=== PATIENT | male | born 1940 | race Caucasian/White ===

== ENCOUNTER 2019-04-09 08:43 | Inpatient (IN) | payer MEDICARE, BC ==
[2019-03-30 10:07] LABS: BASOPHILS % (AUTO) 0.3 % (0-1); EOSINOPHILS # (AUTO) 0.3 X10'3 (0-0.9); LYMPHOCYTES # (AUTO) 1.9 X10'3 (1.1-4.8); LYMPHOCYTES % (AUTO) 29.5 % (21-51); MEAN CORPUSCULAR HEMOGLOBIN 28.9 PG (27.0-31.0); MEAN CORPUSCULAR HGB CONC 33.4 g/dL (33.0-36.5); MEAN CORPUSCULAR VOLUME 86.4 FL (78-98); MEAN PLATELET VOLUME 6.2 FL (7.4-10.4); MONOCYTES # (AUTO) 0.5 X10'3 (0-0.9); MONOCYTES % (AUTO) 7.8 % (2-12); NEUTROPHILS # (AUTO) 3.7 X10'3 (1.8-7.7); NEUTROPHILS % (AUTO) 58.4 % (42-75); PRE OP PLATELET COUNT 211 X10'3 (140-440); RED BLOOD COUNT 4.51 X10'6 (4.70-6.10); RED CELL DISTRIBUTION WIDTH 14.5 % (11.5-14.5)
[2019-03-30 10:30] LABS: ALBUMIN 3.5 G/DL (3.4-5.0); ALBUMIN/GLOBULIN RATIO 1.1 (1.1-1.5); ALKALINE PHOSPHATASE 62 IU/L (46-116); BLOOD UREA NITROGEN 17 MG/DL (7-18); BUN/CREATININE RATIO 17.5 (5.4-32.0); CALCIUM 8.6 MG/DL (8.5-10.1); CHLORIDE 107 MMOL/L (99-107); CREATININE 0.97 MG/DL (0.60-1.10); PRE OP ALT 21 U/L (30-65); PRE OP ANION GAP 5 (8-16); PRE OP AST 15 U/L (10-37); PRE OP BILIRUB, TOTAL 0.5 MG/DL (0.0-1.0); PRE OP GLUCOSE 110 MG/DL (70-104); PRE OP POTASSIUM 4.3 MMOL/L (3.4-5.1); PRE OP SODIUM 140 MMOL/L (135-145); TOTAL CARBON DIOXIDE 28.2 MMOL/L (24-32); TOTAL PROTEIN 6.6 G/DL (6.4-8.2); eGFR 75 ML/MIN
[2019-04-09] VITALS (16 sets, daily range): BP systolic 115–133; BP diastolic 54–73
[~2019-04-09] VITALS: Ht 185.4 cm; Wt 100.0 kg
[~2019-04-09 08:43] MED LIST: ACET-222 PO; ASPI-1265 PO; ATOR10TA70 PO; CHOL10002 PO; DOCU100C40 PO; LISI10TA4 PO; TERA5CAP4 PO; VANCOMYCIN INJ 1000 MG in NORMAL SALINE 250ml IV.SOLN IV ONE; cefazolin/dext.iso 2gm/100 ML IV ONE; famotidine 20mg tablet PO ONE; ringers solution, lacted 1,000 ML IV SCH; tranexamic acid inj. 1,000 MG in normal saline 100 ML IV ONE
[2019-04-09] MEDS ORDERED: IRON PO (09:26)
[2019-04-09] MEDS ORDERED: MULT-933 PO (09:26)
[2019-04-09] MEDS ORDERED: ROPIVAcaine 0.5% (5mg/ml) 30ml vial ONE ×2 (10:21→10:24)
[2019-04-09] MEDS ORDERED: fentaNYL/PF 50MCG/1 ML 2ML syringe ONE ×2 (10:23→12:53)
[2019-04-09] MEDS ORDERED: midazolam 2 mg/2 ml injection ONE (10:23)
[2019-04-09] MEDS ORDERED: propofol inj 20 ML IV ONE (10:24)
[2019-04-09] MEDS ORDERED: LIDOcaine 2% (20mg/ml) 5ml vial ONE (10:24)
[2019-04-09] MEDS ORDERED: ketorolac trometh. 30mg/ml inj. ONE (10:24)
[2019-04-09] MEDS ORDERED: dexamethasone sod phosphate 10mg/ml inj ONE (11:04)
[2019-04-09] MEDS ORDERED: sevoflurane 250ml liquid IH ONE (11:04)
[2019-04-09] MEDS ORDERED: potassium cl 20mEq in 1/2 NS 1,000 ML IV SCH (11:57)
[2019-04-09] MEDS ORDERED: ondansetron/PF 4mg/2ml inj IV PRN ×2 (12:00→12:35)
[2019-04-09] MEDS ORDERED: bisacodyl 10mg suppository rectal RC PRN (12:00)
[2019-04-09] MEDS ORDERED: magnesium hydroxide 30ml (MOM) UD suspension PO PRN (12:00)
[2019-04-09] MEDS ORDERED: diphenhydrAMINE 25mg capsule PO PRN ×2 (12:00)
[2019-04-09] MEDS ORDERED: acetaminophen 325mg tablet PO PRN (12:00)
[2019-04-09] MEDS ORDERED: HYDROmorphone 1 mg/ml syringe IV PRN (12:00)
[2019-04-09] MEDS ORDERED: oxyCODONE IR 5mg (immed. release) tablet PO PRN ×2 (12:00)
[2019-04-09] MEDS ORDERED: HYDROmorphone inj. 0.5 MG/0.5 ML DISP.SYRIN IV PRN (12:00)
[2019-04-09] MEDS ORDERED: ondansetron/PF 4mg/2ml inj ONE (12:05)
[2019-04-09] MEDS ORDERED: ROPIVAcaine 0.2%/PF PAIN PUMP 400 ML IJ SCH (12:34)
[2019-04-09] MEDS ORDERED: ringers solution, lacted 1,000 ML IV SCH (12:34)
[2019-04-09] MEDS ORDERED: hydrALAZINE 20mg/ml inj. IV PRN (12:35)
[2019-04-09] MEDS ORDERED: morphine 4 MG/ML inj SYRINge IV PRN ×2 (12:35)
[2019-04-09] MEDS ORDERED: enalaprilat dihydrate 2.5mg/2ml vial IV PRN (12:35)
[2019-04-09] MEDS ORDERED: fentaNYL/PF 50MCG/1 ML 2ML syringe IV PRN ×2 (12:35)
--- NOTE | 2019-04-09 13:32 | NUR ---
Received from OR via ORTHO BED WITH [facility] , accompanied by Anesthesiologist [place] and report given by Anesthesiolgist. PATIENT WITH 18G PIV IN RIGHT UE RUNNING LR AT 100. SLING TO LEFT SHOULDER IS CDI. + RAIDAL PULSE PRESENT. PATIENT WITH ANTERIOR SHOUDLER DRESSING IS CDI. 10L MASK ON WITH 100% SATURATIONS. VSS Addendum: 04/09/19 at 1344 by Carlos Ash RN, RN Amended: Links added.
[2019-04-09] MEDS: acetaminophen 325mg tablet PO SCH ×2 (14:00→21:28)
--- NOTE | 2019-04-09 14:25 | NUR ---
Patient in room ORTHO 4013. I have received report from WILLIAM Villalta and had the opportunity to ask questions and assume patient care. Started post-op vitals. Pt had no C/O pain.
--- NOTE | 2019-04-09 14:42 | NUR ---
ALL CRITERIA FOR TRANSFER TO THE FLOOR HAS BEEN ACHIEVED. VSS. BED LOW, CALL LIGHT AND VS. SET IN PLACE. RN NOTIFIED PATIENT HAS ARRIVED. PATIENT RESTING COMFORTABLY IN BED. BELONGINGS SENT WITH PATIENT. DRESSINGS CDI. AT BEDSIDE. ONE BAG OF LABELED BELONGINGS IN CLOSET OF 2419B. REPORT GIVEN TO KAYLYN THOMAS. Addendum: 04/09/19 at 1448 by Carlos Ash RN, RN Amended: Links added.
[2019-04-09] MEDS ORDERED: tranexamic acid inj. 1,000 MG in normal saline 100ml IV soln 100 ML IV ONE (15:00)
[2019-04-09] MEDS: ceFAZolin 1GM/D5W- ADD-VANTAGE 50 ML IV SCH (15:55)
--- NOTE | 2019-04-09 18:17 | NUR ---
Problems reprioritized. Patient report given, questions answered & plan of care reviewed with WILLIAM Gallegos.
--- NOTE | 2019-04-09 19:00 | NUR ---
Patient in room ORTHO 4013. I have received report from Julián and Reshma RNs and had the opportunity to ask questions and assume patient care.
[2019-04-09] MEDS ORDERED: vancomycin/NS 1 GM ADD-VANTAGE 250 ML IV SCH (20:00)
[2019-04-09] MEDS ORDERED: sennosides 8.6mg tablet PO SCH (21:00)
[2019-04-09] MEDS ORDERED: vitamin D (cholecalciferol) 1,000 unit tablet PO SCH (21:00)
[2019-04-09] MEDS ORDERED: lisinopril 10 MG tablet PO SCH (21:00)
[2019-04-09] MEDS ORDERED: docusate sod 100mg capsule PO SCH (21:00)
[2019-04-09] MEDS ORDERED: atorvastatin 10mg tablet PO SCH (21:00)
[2019-04-09] MEDS ORDERED: terazosin 5mg capsule PO SCH (21:00)
[2019-04-10] MEDS: ceFAZolin 1GM/D5W- ADD-VANTAGE 50 ML IV SCH (00:16)
--- NOTE | 2019-04-10 01:16 | NUR ---
Pt resting in bed quietly, denies pain, sensation returning to palm of hand, and fingertips tingling.
[2019-04-10 02:00] VITALS: BP 118/56
[2019-04-10 06:00] VITALS: BP 136/62
--- NOTE | 2019-04-10 06:15 | NUR ---
Patient in room ORTHO 4013. I have received report from El THOMAS and had the opportunity to ask questions and assume patient care.
[2019-04-10 06:18] LABS: BASOPHILS % (AUTO) 0.1 % (0-1); EOSINOPHILS % (AUTO) 0.4 % (0-6); HEMATOCRIT 30.6 % (42.0-52.0); HEMOGLOBIN 10.2 g/dl (14.0-17.9); LYMPHOCYTES # (AUTO) 1.6 X10'3 (1.1-4.8); LYMPHOCYTES % (AUTO) 14.4 % (21-51); MEAN CORPUSCULAR HEMOGLOBIN 29.1 PG (27.0-31.0); MEAN CORPUSCULAR HGB CONC 33.4 g/dL (33.0-36.5); MEAN CORPUSCULAR VOLUME 87.1 FL (78-98); MEAN PLATELET VOLUME 6.6 FL (7.4-10.4); MONOCYTES # (AUTO) 0.9 X10'3 (0-0.9); MONOCYTES % (AUTO) 7.8 % (2-12); NEUTROPHILS # (AUTO) 8.6 X10'3 (1.8-7.7); NEUTROPHILS % (AUTO) 77.3 % (42-75); PLATELET COUNT 164 X10'3 (140-440); RED BLOOD COUNT 3.52 X10'6 (4.70-6.10); RED CELL DISTRIBUTION WIDTH 14.7 % (11.5-14.5); WHITE BLOOD COUNT 11.1 X10'3 (4.5-11.0)
[2019-04-10 07:42] LABS: ANION GAP 6 (8-16); CHLORIDE 109 MMOL/L (99-107); POTASSIUM 4.5 MMOL/L (3.5-5.1); SODIUM 140 MMOL/L (135-145); TOTAL CARBON DIOXIDE 25.3 MMOL/L (24-32)
[2019-04-10] MEDS ORDERED: aspirin 325mg tablet PO SCH (08:30)
[2019-04-10] MEDS: acetaminophen 325mg tablet PO SCH (09:29)
[2019-04-10 10:00] VITALS: BP 123/55
[2019-04-10] MEDS ORDERED: celeCOXIB 100mg capsule PO SCH (20:00)
[2019-04-11] MEDS ORDERED: acetaminophen 325mg tablet PO PRN (12:00)
== END 2019-04-10 13:03 | disposition home or self-care (01) | DRG 483 ==
LOC: PAS 08:43 → EDSTATUS 11:45 → ORTHO 4S 15:47
PROVIDERS: ADMIT Orthopaedic Surgery; ATTEND Orthopaedic Surgery
PROC: 3E0T3BZ Introduction of Anesthetic Agent into Peripheral Nerves and Plexi, Percutaneous Approach (ICD-10-PCS; 2019-04-09)
PROC: 0RRK0JZ Replacement of Left Shoulder Joint with Synthetic Substitute, Open Approach (ICD-10-PCS; principal; 2019-04-09 11:04)
DX: M19.012 Primary osteoarthritis, left shoulder (principal); D62 Acute posthemorrhagic anemia; M25.512 Pain in left shoulder; E78.5 Hyperlipidemia, unspecified; I10 Essential (primary) hypertension; N40.0 Benign prostatic hyperplasia without lower urinary tract symptoms; I25.10 Atherosclerotic heart disease of native coronary artery without angina pectoris; Z79.899 Other long term (current) drug therapy; Z79.82 Long term (current) use of aspirin
CPT/HCPCS: 36415; 80051; 80053; 82948; 85025; 87081; 97161; 97530; A4565; A4618; A7000; C1713; C1776; G0378; J0690; J1100; J1885; J2001; J2250; J2405; J2704; J2795; J3010; J3370; J3480; J7120

== ENCOUNTER 2023-07-10 07:22 | Inpatient (IN) | payer MEDICARE, BC ==
[2023-07-04 10:45] LABS: BILIRUBIN,URINE NEGATIVE (Neg); CLARITY,URINE CLEAR (Clear); COLOR,URINE YELLOW (Yellow); GLUCOSE, URINE NEGATIVE (Neg); KETONES,URINE NEGATIVE (Neg); LEUKOCYTE ESTERASE ,URINE NEGATIVE (Neg); NITRITES, URINE NEGATIVE (Neg); OCCULT BLOOD,URINE TRACE-INTACT (Neg); PH,URINE 6.5 (4.8-8.0); PROTEIN,URINE NEGATIVE (Neg); UROBILINOGEN,URINE 0.2 E.U/dL (0.2-1.0)
[2023-07-04 10:46] LABS: BASOPHILS % (AUTO) 0.3 % (0-1); EOSINOPHILS # (AUTO) 0.3 X10'3 (0-0.9); EOSINOPHILS % (AUTO) 5.1 % (0-6); LYMPHOCYTES # (AUTO) 1.8 X10'3 (1.1-4.8); LYMPHOCYTES % (AUTO) 27.7 % (21-51); MEAN CORPUSCULAR HEMOGLOBIN 29.6 PG (27.0-31.0); MEAN CORPUSCULAR VOLUME 86.9 FL (78-98); MONOCYTES # (AUTO) 0.6 X10'3 (0-0.9); NEUTROPHILS # (AUTO) 3.7 X10'3 (1.8-7.7); NEUTROPHILS % (AUTO) 57.9 % (42-75); PRE OP HEMATOCRIT 38.8 % (42.0-52.0); PRE OP HEMOGLOBIN 13.2 g/dL (14.0-17.9); PRE OP PLATELET COUNT 201 X10'3 (140-440); PRE OP WHITE BLOOD COUNT 6.4 10'3 (4.8-10.8); RED BLOOD COUNT 4.47 X10'6 (4.70-6.10); RED CELL DISTRIBUTION WIDTH 14.2 % (11.5-14.5)
[2023-07-04 10:55] LABS: UA COLLECTION TYPE CLN CATCH MIDSTREAM
[2023-07-04 10:56] LABS: BACTERIA,URINE NONE SEEN /HPF (Neg); MUCUS STRANDS NONE SEEN /LPF (Neg); RBC,URINE 0-2 /HPF (0-2); SQUAMOUS EPITHELIAL CELL,UR FEW /LPF (FEW); WBC,URINE NONE SEEN /HPF (0-4)
[2023-07-04 11:01] LABS: PRE OP PROTIME 10.6 SECONDS (9.0-12.0)
[2023-07-04 11:05] LABS: ALBUMIN 3.6 G/DL (3.4-5.0); ALBUMIN/GLOBULIN RATIO 1.2 (1.1-1.5); ALKALINE PHOSPHATASE 78 IU/L (46-116); BLOOD UREA NITROGEN 12 MG/DL (7-18); BUN/CREATININE RATIO 13.6 (10.0-20.0); CALCIUM 9.3 MG/DL (8.5-10.1); CHLORIDE 106 MMOL/L (99-107); CREATININE 0.88 MG/DL (0.60-1.10); PRE OP ALT 28 U/L (30-65); PRE OP ANION GAP 8 (8-16); PRE OP AST 24 U/L (10-37); PRE OP BILIRUB, TOTAL 0.7 MG/DL (0.0-1.0); PRE OP GLUCOSE 117 MG/DL (70-104); PRE OP POTASSIUM 4.1 MMOL/L (3.4-5.1); PRE OP SODIUM 141 MMOL/L (135-145); TOTAL CARBON DIOXIDE 27.5 MMOL/L (24-32); TOTAL PROTEIN 6.7 G/DL (6.4-8.2); eGFR 83 ML/MIN
[~2023-07-10] VITALS: Ht 185.4 cm; Wt 103.5 kg
[2023-07-10] VITALS (25 sets, daily range): BP systolic 110–133; BP diastolic 56–76; PULSE 52–94; RESP 12–21; TEMP 97.7–98; O2SAT 93–100
[~2023-07-10 07:22] MED LIST changes: -ACET-222 PO; -CHOL10002 PO; +CHOL200013 PO; +IRON PO; +LISI10TA27 PO; -LISI10TA4 PO; +MELO-102 PO; +MULT-933 PO; -VANCOMYCIN INJ 1000 MG in NORMAL SALINE 250ml IV.SOLN IV ONE; +VIT E PO; +cefazolin 2gm/D5W 100mL 100 ML IV ONE; -cefazolin/dext.iso 2gm/100 ML IV ONE; -tranexamic acid inj. 1,000 MG in normal saline 100 ML IV ONE; +tranexamic acid inj. 1,000 MG in normal saline IV soln 100ML IV ONE
[2023-07-10] MEDS ORDERED: cloNIDine hcl/PF 100mcg/ml inj ONE (09:26)
[2023-07-10] MEDS ORDERED: ondansetron/PF 4mg/2ml inj IV PRN ×2 (09:30→09:40)
[2023-07-10] MEDS ORDERED: midazolam 1 mg/ML 2ml injection ONE (09:30)
[2023-07-10] MEDS ORDERED: acetaminophen 325mg tablet PO PRN (09:30)
[2023-07-10] MEDS ORDERED: HYDROcodone/acetaminophen 10/325mg tab PO PRN ×2 (09:30)
[2023-07-10] MEDS ORDERED: diphenhydrAMINE 25mg capsule PO PRN (09:30)
[2023-07-10] MEDS ORDERED: magnesium hydroxide 30ml (MOM) UD suspension PO PRN (09:30)
[2023-07-10] MEDS ORDERED: bisacodyl 10mg suppository rectal RC PRN (09:30)
[2023-07-10] MEDS ORDERED: naloxone 0.4 mg/ml inj IV PRN (09:30)
[2023-07-10] MEDS ORDERED: fentaNYL /PF 50mcg/ml 5ml ampule ONE (09:31)
[2023-07-10] MEDS ORDERED: sevoflurane 250ml liquid IH ONE (09:38)
[2023-07-10] MEDS ORDERED: ringers solution, lacted 1,000 ML IV SCH (09:40)
[2023-07-10] MEDS ORDERED: acetaminophen 1,000mg/100ml IV 100 ML IV PRN (09:40)
[2023-07-10] MEDS ORDERED: morphine 4 MG/ML inj SYRINge IV PRN (09:40)
[2023-07-10] MEDS ORDERED: labetalol 20mg/4ml (5mg/ml) syringe IV PRN (09:40)
[2023-07-10] MEDS ORDERED: hydrALAZINE 20mg/ml inj. IV PRN (09:40)
[2023-07-10] MEDS ORDERED: meperidine/PF 25mg/ml syringe IV PRN ×3 (09:40)
[2023-07-10] MEDS ORDERED: morphine 2 MG/ML inj. syringe IV PRN (09:40)
[2023-07-10] MEDS ORDERED: proCHLORperazine 10 MG/2 ml inj IV PRN (09:40)
[2023-07-10] MEDS ORDERED: vancomycin 1,000mg inj ONE (10:11)
[2023-07-10] MEDS ORDERED: ePHEDrine 50MG/ML INJ. ONE (10:32)
[2023-07-10] MEDS ORDERED: propofol inj 20 ML IV ONE (10:32)
[2023-07-10] MEDS ORDERED: rocuronium 10mg/ml inj IV ONE (10:32)
[2023-07-10] MEDS ORDERED: 0.9 % SODIUM CHLORIDE 10 ML VIAL ONE (10:32)
[2023-07-10] MEDS ORDERED: LIDOcaine 1%/PF 5ML 10 MG/ML VIAL ONE (10:32)
[2023-07-10] MEDS ORDERED: ROPIVAcaine 0.5% (5mg/ml) 30ml vial ONE (10:32)
[2023-07-10] MEDS ORDERED: dexamethasone sod phosphate 4mg/ml inj. ONE (10:32)
[2023-07-10] MEDS ORDERED: LIDOcaine 2% (20mg/ml) 5ml vial ONE (10:32)
[2023-07-10] MEDS ORDERED: glycopyrrolate 0.2mg/ml inj ONE ×2 (10:33→12:09)
[2023-07-10] MEDS ORDERED: ondansetron/PF 4mg/2ml inj ONE (10:33)
[2023-07-10] MEDS ORDERED: neostigmine methylsulfate 1 MG/ML 10ml vial ONE (12:09)
--- NOTE | 2023-07-10 12:25 | NUR ---
Received from OR via HOSPITAL BED TO RR 8, accompanied by Anesthesiologist DR CARRASCO and report given by Anesthesiolgist. PT PRESENTS WITH 20G LEFT AC, SPO2 99 6L MASK, LR RUNNING AT 100MLS/HR, RIGHT SHOULDER WRAP WITH POWDER PACK AND SLING NISHANT, NICHOLAS. Addendum: 07/10/23 at 1244 by Natali Ash RN, RN Amended: Links added.
--- NOTE | 2023-07-10 14:49 | NUR ---
PT UNABLE TO PUT WEDDING RING ON AT THIS TIME. PT'S TOOK PT'S WEDDING RING HOME WITH HER.
[2023-07-10] MEDS: cefazolin 2gm/D5W 100mL 100 ML IV SCH ×2 (16:51→23:52)
--- NOTE | 2023-07-10 18:28 | NUR ---
Problems reprioritized. Patient report given, questions answered & plan of care reviewed with WILLIAM Albarado.
[2023-07-10] MEDS ORDERED: lisinopril 10 MG tablet PO SCH (21:00)
[2023-07-10] MEDS ORDERED: terazosin 5mg capsule PO SCH (21:00)
[2023-07-10] MEDS ORDERED: atorvastatin 10mg tablet PO SCH (21:00)
[2023-07-10] MEDS ORDERED: aspirin 81mg tab.chew PO SCH (21:00)
[2023-07-10] MEDS ORDERED: docusate sod 100mg capsule PO SCH (21:00)
[2023-07-10] MEDS: potassium cl 20mEq in 1/2 NS 1,000 ML IV SCH (22:15)
[2023-07-11 02:00] VITALS: BP 118/67; PULSE 58; RESP 16; TEMP 97.4; O2SAT 96
--- NOTE | 2023-07-11 06:30 | NUR ---
dr. rockwell rounded on patient. orders for discharge written but MD requested to have labs and physical therapy results called to him directly prior to discharge. notified day RN Irish. pt declined pain medication this am "I really don't like taking that stuff".
[2023-07-11 06:46] VITALS: BP 127/53; PULSE 61; RESP 18; TEMP 97.4; O2SAT 96
[2023-07-11 06:53] LABS: BASOPHILS % (AUTO) 0.1 % (0-1); EOSINOPHILS # (AUTO) 0.1 X10'3 (0-0.9); EOSINOPHILS % (AUTO) 0.9 % (0-6); HEMATOCRIT 33.3 % (42.0-52.0); HEMOGLOBIN 11.4 g/dl (14.0-17.9); LYMPHOCYTES # (AUTO) 2.1 X10'3 (1.1-4.8); LYMPHOCYTES % (AUTO) 19.8 % (21-51); MEAN CORPUSCULAR HEMOGLOBIN 29.9 PG (27.0-31.0); MEAN CORPUSCULAR HGB CONC 34.2 g/dL (33.0-36.5); MEAN CORPUSCULAR VOLUME 87.5 FL (78-98); MEAN PLATELET VOLUME 6.4 FL (7.4-10.4); MONOCYTES % (AUTO) 9.1 % (2-12); NEUTROPHILS # (AUTO) 7.6 X10'3 (1.8-7.7); NEUTROPHILS % (AUTO) 70.1 % (42-75); PLATELET COUNT 188 X10'3 (140-440); RED BLOOD COUNT 3.81 X10'6 (4.70-6.10); RED CELL DISTRIBUTION WIDTH 14.3 % (11.5-14.5); WHITE BLOOD COUNT 10.8 X10'3 (4.5-11.0)
[2023-07-11 07:09] LABS: ANION GAP 8 (8-16); CHLORIDE 104 MMOL/L (99-107); POTASSIUM 4.2 MMOL/L (3.5-5.1); SODIUM 137 MMOL/L (135-145); TOTAL CARBON DIOXIDE 25.5 MMOL/L (24-32)
[2023-07-11 08:00] VITALS: RESP 18; O2SAT 98
[2023-07-11] MEDS ORDERED: VIT E PO SCH (08:00)
[2023-07-11] MEDS ORDERED: MELOXICAM 7.5 MG TABLET PO SCH (08:00)
[2023-07-11] MEDS ORDERED: cholecalciferol (vitamin D3) 1,000 unit (25mcg) tablet PO SCH (08:00)
[2023-07-11] MEDS ORDERED: multivitamins, therapeutics tablet PO SCH (08:00)
[2023-07-11 08:43] VITALS: RESP 16
--- NOTE | 2023-07-11 09:45 | NUR ---
Per EMR pt POD #1 s/p reverse right TSA, pending discharge at this time. Written high protein education with O[facility] coupons and RD contact information mailed to patient's address found in EMR. Will continue to follow. Addendum: 07/11/23 at [address] Amended: Links added.
--- NOTE | 2023-07-11 11:26 | NUR ---
Dr. Cherry contacted earlier this AM, Labs gone over with and PT updates given. Pt discharged home at 1025 via lease picker. Pt left in stable condition with all belongings.
== END 2023-07-11 10:15 | disposition home or self-care (01) | DRG 483 ==
LOC: PAS IN 07:22 → ORTHO 4S 14:38
PROVIDERS: ADMIT Specialist; ATTEND Specialist
PROC: 0LS30ZZ Reposition Right Upper Arm Tendon, Open Approach (ICD-10-PCS; 2023-07-10)
PROC: 0RRJ00Z Replacement of Right Shoulder Joint with Reverse Ball and Socket Synthetic Substitute, Open Approach (ICD-10-PCS; principal; 2023-07-10 09:38)
DX: M19.011 Primary osteoarthritis, right shoulder (principal); I10 Essential (primary) hypertension; M75.111 Incomplete rotator cuff tear or rupture of right shoulder, not specified as traumatic; M65.811 Other synovitis and tenosynovitis, right shoulder; Z95.5 Presence of coronary angioplasty implant and graft; Z79.899 Other long term (current) drug therapy
CPT/HCPCS: 36415; 73030; 76000; 80051; 80053; 81001; 82948; 85025; 85610; 85730; 86885; 86900; 86901; 87081; 97161; 97530; A4565; A4618; A6449; A6455; A7000; C1776; G0378; J0690; J0735; J1100; J2250; J2405; J2704; J2710; J2795; J3010; J3370; J3480; J3490; J7120